=== PATIENT | female | born 1990 | race Caucasian/White ===

== ENCOUNTER 2018-10-27 14:27 | Emergency (ER) | payer BC, SELFPAY ==
[2018-10-27 14:34] VITALS: BP 127/92; PULSE 79; RESP 18; TEMP 36.8; O2SAT 100; BMI 29.9
--- NOTE | 2018-10-27 15:00 | DI.US.S_ITS ---
PROCEDURE: US PELVIC COMPLETE INDICATIONS: LEFT LOWER QUADRANT PAIN TECHNIQUE: Real-time scanning was performed of the pelvic organs, with image documentation. Additional endovaginal scanning was necessary due to incomplete visualization of the adnexal and endometrial structures by transabdominal scanning. COMPARISON: None. FINDINGS: Transabdominal scanning: Limited scanning through the kidneys shows no hydronephrosis. No pathologic free abdominal or pelvic fluid. Endovaginal scanning: Uterus: Uterus is normal in size at 6.7 x 3.1 x 4 cm. The endometrium measures 4 mm in combined thickness. An IUD is seen at its expected location. Ovaries: The right ovary measures 2.3 x 1.5 x 2.2 cm. The left ovary measures 2.2 x 1.1 x 2.4 cm. The ovaries have a normal sonographic appearance. No adnexal masses are seen. IMPRESSION: No imaging explanation is found for this patient's presenting history of left lower quadrant pain. Normal-appearing left ovary, without adnexal masses seen. The IUD is seen in place. Dictated by: Filiberto Bautista M.D. on 10/27/2018 at 14:36 Approved by: Filiberto Bautista M.D. on 10/27/2018 at 14:38
[2018-10-27] MEDS: SODIUM CHLORIDE 0.9% 1,000 ML 1000 ML IV (15:08)
--- NOTE | 2018-10-27 15:18 | ED.ABDPAIN ---
HPI - Abdominal Pain <ESDRAS Knapp - Last Filed: 10/27/18 19:17> General Chief Complaint: Abdominal Pain Stated Complaint: states left ovary swollen and pain Time Seen by Provider: 10/27/18 14:50 Source: patient Mode of arrival: ambulatory Limitations: no limitations History of Present Illness HPI narrative: Patient is a 28-year-old female nonsmoker who presents with her boyfriend with a chief complaint of left lower quadrant pain. She has been told she has an enlarged left ovary via pelvic exam about 6 months ago. She complains of chills, no overt fevers and pain that radiates from her left lower quadrant over to her right lower quadrant. She denies any concern of sexually transmitted infection. She denies any vaginal discharge or vaginal bleeding. She denies any constipation states her last bowel movement was this morning. She denies any dysuria urgency or frequency. She denies any vomiting, but complains of occasional nausea. Related Data Allergies Allergy/AdvReac Type Severity Reaction Status Date / Time No Known Drug Allergies Allergy Verified 10/27/18 14:40 Review of Systems <ESDRAS Knapp - Last Filed: 10/27/18 19:17> Review of Systems GENERAL: Denies chills, fatigue, malaise, fever, sweats. HEENT: Denies sinus pain, ear pain, sore throat, difficulty swallowing, dizziness. RESPIRATORY: Denies dyspnea, cough, wheezing, hemoptysis, sputum. CARDIOVASCULAR: Denies chest pain, palpitations, orthopnea, edema, GASTROINTESTINAL: See HPI : See HPI MUSCULOSKELETAL: denies weakness, joint pain, or bony pain SKIN: Denies rash, skin lesions, or other NEUROLOGIC: Denies weakness, headache, numbness, change in speech, confusion, seizures, incoordination. PSYCHIATRIC: No concerning psychosocial issues. 12 point review of systems is negative except for those stated above PFSH <ESDRAS Knapp - Last Filed: 10/27/18 19:17> Social History Smoking Status: Never smoker Social History Smoking Status: Never smoker Exam <ESDRAS Knapp - Last Filed: 10/27/18 19:17> Narrative Exam Narrative: GENERAL: This is a well-nourished, well-developed patient, no acute distress HEAD: Atraumatic. Normocephalic. No temporal or scalp tenderness. EYES: Pupils equal round and reactive. Extraocular motions intact. No scleral icterus. No injection or drainage. ENT: Nose without bleeding, purulent drainage or septal hematoma. Throat without erythema, tonsillar hypertrophy or exudate. Uvula midline. Airway patent. NECK: Trachea midline. No JVD or lymphadenopathy. Supple, nontender, no meningeal signs. CARDIOVASCULAR: Regular rate and rhythm without murmurs, gallops, or rubs. RESPIRATORY: Clear to auscultation. Breath sounds equal bilaterally. No wheezes, rales, or rhonchi. No cough. No increased respiratory effort. GASTROINTESTINAL: Abdomen soft, active bowel sounds all 4 quadrants, nondistended. No hepato-splenomegaly, or palpable masses. Pain to palpation of left lower quadrant. EXTREMITIES: No clubbing, cyanosis, or edema. No joint tenderness, effusion, or edema noted. BACK: Nontender without deformity or crepitance. No flank tenderness. NEURO: AOx3. SKIN: No rash or erythema. Initial Vital Signs Initial Vital Signs: Vital Signs Temperature 98.3 F 10/27/18 14:34 Pulse Rate 79 10/27/18 14:34 Respiratory Rate 18 10/27/18 14:34 Blood Pressure 127/92 H 10/27/18 14:34 Pulse Oximetry 100 10/27/18 14:34 <Mariama Robins DO - Last Filed: 10/29/18 10:15> Initial Vital Signs Initial Vital Signs: Vital Signs Temperature 98.3 F 10/27/18 14:34 Pulse Rate 79 10/27/18 14:34 Respiratory Rate 18 10/27/18 14:34 Blood Pressure 127/92 H 10/27/18 14:34 Pulse Oximetry 100 10/27/18 14:34 Course <YOSELIN Knapp-BC - Last Filed: 10/27/18 19:17> Course Narrative: I checked on the patient several times throughout her stay in the emergency department. Orders Ordered: Discontinued Medications Sodium Chloride (Normal Saline 0.9%) 1,000 mls @ 1,000 mls/hr IV BOLUS ONE Stop: 10/27/18 16:00 Last Infusion: 10/27/18 16:27 Dose: 0 mls/hr Admin: 10/27/18 15:08 Dose: 1,000 mls/hr Ketorolac Tromethamine (Toradol) 30 mg IV NOW ONE Stop: 10/27/18 16:34 Last Admin: 10/27/18 16:49 Dose: 30 mg Vital Signs - 8 hr 10/27/18 14:34 10/27/18 16:42 Temperature 98.3 F 98.8 F Pulse Rate 79 65 Respiratory Rate 18 17 Blood Pressure 127/92 H Blood Pressure [Right Arm] 114/80 Pulse Oximetry 100 99 <Mariama Robins DO - Last Filed: 10/29/18 10:15> Orders Ordered: Discontinued Medications Sodium Chloride (Normal Saline 0.9%) 1,000 mls @ 1,000 mls/hr IV BOLUS ONE Stop: 10/27/18 16:00 Last Infusion: 10/27/18 16:27 Dose: 0 mls/hr Admin: 10/27/18 15:08 Dose: 1,000 mls/hr Ketorolac Tromethamine (Toradol) 30 mg IV NOW ONE Stop: 10/27/18 16:34 Last Admin: 10/27/18 16:49 Dose: 30 mg Vital Signs - 8 hr 10/27/18 14:34 10/27/18 16:42 Temperature 98.3 F 98.8 F Pulse Rate 79 65 Respiratory Rate 18 17 Blood Pressure 127/92 H Blood Pressure [Right Arm] 114/80 Pulse Oximetry 100 99 MDM - Abdominal Pain <ESDRAS Knapp - Last Filed: 10/27/18 19:17> Lab Data Result diagrams: 10/27/18 14:55 10/27/18 14:55 Lab Results 10/27/18 10/27/18 Range/Units 14:55 14:55 WBC 6.7 (4.5-11.0) X10^3/uL RBC 4.28 (4.0-5.2) X10^6/uL Hgb 13.5 (12.0-16.0) g/dL Hct 39.7 (36-46) % MCV 92.9 (80-100) fL MCH 31.5 (26-34) PG MCHC 33.9 (30-36) % RDW 13.7 (11.6-14.8) % Plt Count 251 (150-400) X10^3/uL Neut % (Auto) 55.8 (50-75) % Lymph % (Auto) 34.1 (25-40) % Pershing % (Auto) 6.0 (3-14) % Eos % (Auto) 3.5 (2-4) % Baso % (Auto) 0.6 (0-2) % Neut # (Auto) 3700 (5771-8518) /uL Lymph # (Auto) 2300 (1899-6601) /uL Pershing # (Auto) 400 (0-900) /uL Eos # (Auto) 200 (0-450) /uL Baso # (Auto) 0 (0-100) /uL Sodium 140 (137-145) mmol/L Potassium 3.6 (3.4-5.1) mmol/L Chloride 105 (98-107) mmol/L Carbon Dioxide 24 (22-32) mmol/L BUN 15 (7-17) mg/dL Creatinine 0.60 (0.52-1.04) mg/dL Estimated GFR > 60.0 (>60) mL/min BUN/Creatinine Ratio 25.0 H (6-22) Glucose 89 (70-100) mg/dL Calcium 9.0 (8.4-10.2) mg/dL Total Bilirubin 0.4 (0.2-1.3) mg/dL AST 16 (14-36) IU/L ALT 19 (9-52) IU/L Alkaline Phosphatase 56 (38-126) U/L Total Protein 8.0 (6.3-8.2) g/dL Albumin 4.5 (3.5-5.0) g/dL Globulin 3.5 (1.7-4.1) g/dL Albumin/Globulin Ratio 1.3 (1.0-2.8) Amylase 72 (30-110) U/L Lipase 95 (23-300) U/L Point of care testing: Point of Care Testing Test Results Negative Urine Dip Bedside Urine Glucose Negative Bedside Urine Bilirubin - Negative Bedside Urine Ketone - Negative Urine Specific [place] 1.015 Bedside Urine Occult Blood - Negative Bedside Urine pH 6.5 Bedside Urine Protein - Negative Bedside Urine Urobilinogen - Negative Bedside Urine Nitrite - Negative Bedside Urine Leukocytes - Negative Esterase Imaging Data CT scan - abdomen: Radiologist's impression: Chart [facility] Diagn[facility] DATE TYPE STATUS AUTHOR Hx 10/27/18 15:38 Gus Marr 10/27/18 15:00 Filiberto Bautista Alia C 28, F108/09/1989 REG ER, ED.LOC - Main ED: R07 165.1cm 81.647kg BMI: 30.0kg/m? Abdominal Pain Search Chart No Data to Display ONSET Today 14:34 Kalina Voss 28 F 1990 [place] [address] CT Scan Report Signed Patient: Kalina Voss CMR#: [id number] : 1990Acct:[id number] Age/Sex: 28 / FDate of Service: 10/27/18 Loc: ED Accession Number: [id number] Procedure: CT abdomen pelvis w con Ordering Provider: Oliva Guillermo- PROCEDURE: CT ABDOMEN PELVIS W CON INDICATIONS: LLQ pain TECHNIQUE: After the administration of intravenous contrast, 5 mm thick sections acquired from the diaphragm to the symphysis. 5 mm coronal and sagittal reformats were acquired. For radiation dose reduction, the following was used: automated exposure control, adjustment of mA and/or kV according to patient size. COMPARISON: None. FINDINGS: Inferior Mediastinum: Visualized portions of the inferior mediastinum and inferior heart are unremarkable. Lungs: Visualized lung bases demonstrate mild bibasilar dependent atelectasis. ABDOMEN FINDINGS: Liver: Liver is unremarkable in appearance without focal intrahepatic abnormalities. No intrahepatic or extrahepatic biliary ductal dilatation. Gallbladder: Gallbladder is unremarkable without CT evidence for acute inflammation. Stomach: Visualized stomach appears unremarkable. Spleen: The spleen is normal in size and appearance. Adrenal glands: The adrenal glands are unremarkable in CT appearance. No suspicious nodules. Pancreas: Symmetric enhancement without focal lesions or pancreatic ductal dilatation. Kidneys: Kidneys are symmetric in size and enhancement, and there is no obstructive uropathy. Ureters are normal in course and caliber. Vessels: The visualized vascular structures are intact and well opacified. No evidence for aneurysmal dilatation of the abdominal aorta. Bowel and Mesentery: There is no evidence for bowel obstruction or acute inflammatory process. A few scattered colonic diverticula without acute diverticulitis. The visualized appendix appears normal. Peritoneal cavity: No suspicious lymphadenopathy within the mesenteric or pelvic regions as per CT size criteria. No free intraabdominal gas or fluid. Other soft tissues: No inguinal hernia. No ventral hernia. PELVIC FINDINGS: The visualized urinary bladder appears intact. No pathologically enlarged pelvic lymph nodes. No pathologic pelvic free fluid. Reproductive organs: Unremarkable as visualized. An intrauterine device is identified within the endometrial cavity. Osseous Structures: Visualized osseous structures are intact without acute fracture or focal destructive lesion. IMPRESSION: 1. CT abdomen and pelvis without acute abnormalities. 2. A few scattered colonic diverticula without CT findings for acute diverticulitis. 3. Normal appendix Dictated by: Gus Marr M.D. on 10/27/2018 at 16:02 Approved by: Gus Marr M.D. on 10/27/2018 at 16:15 [facility] Narrative Medical decision making narrative: The patient is a 28-year-old female who presents with lower quadrant pain. She has a [place] normal pelvic ultrasound, normal UA as well as a normal CT scan. She does have a history of enlarged left ovary, which is why I obtained a pelvic ultrasound. She had a normal pelvic ultrasound, so I obtained a CT scan to rule out any etiology such as diverticulitis. She is nontoxic-appearing in the emergency department normotensive and afebrile. Given that she had a normal CBC, CMP and lipase and lipase, I would like her to follow up with her primary care provider in the next few days. She verbalized understanding of this. We discussed return precautions of inability keep down fluids, fever and acute concerns. Patient no questions or concerns upon discharge. She was given Toradol and IV fluid in the emergency department. <Mariama Robins, DO - Last Filed: 10/29/18 10:15> Lab Data Lab Results 10/27/18 10/27/18 Range/Units 14:55 14:55 WBC 6.7 (4.5-11.0) X10^3/uL RBC 4.28 (4.0-5.2) X10^6/uL Hgb 13.5 (12.0-16.0) g/dL Hct 39.7 (36-46) % MCV 92.9 (80-100) fL MCH 31.5 (26-34) PG MCHC 33.9 (30-36) % RDW 13.7 (11.6-14.8) % Plt Count 251 (150-400) X10^3/uL Neut % (Auto) 55.8 (50-75) % Lymph % (Auto) 34.1 (25-40) % Pershing % (Auto) 6.0 (3-14) % Eos % (Auto) 3.5 (2-4) % Baso % (Auto) 0.6 (0-2) % Neut # (Auto) 3700 (8718-1388) /uL Lymph # (Auto) 2300 (7309-0392) /uL Pershing # (Auto) 400 (0-900) /uL Eos # (Auto) 200 (0-450) /uL Baso # (Auto) 0 (0-100) /uL Sodium 140 (137-145) mmol/L Potassium 3.6 (3.4-5.1) mmol/L Chloride 105 (98-107) mmol/L Carbon Dioxide 24 (22-32) mmol/L BUN 15 (7-17) mg/dL Creatinine 0.60 (0.52-1.04) mg/dL Estimated GFR > 60.0 (>60) mL/min BUN/Creatinine Ratio 25.0 H (6-22) Glucose 89 (70-100) mg/dL Calcium 9.0 (8.4-10.2) mg/dL Total Bilirubin 0.4 (0.2-1.3) mg/dL AST 16 (14-36) IU/L ALT 19 (9-52) IU/L Alkaline Phosphatase 56 (38-126) U/L Total Protein 8.0 (6.3-8.2) g/dL Albumin 4.5 (3.5-5.0) g/dL Globulin 3.5 (1.7-4.1) g/dL Albumin/Globulin Ratio 1.3 (1.0-2.8) Amylase 72 (30-110) U/L Lipase 95 (23-300) U/L Point of care testing: Point of Care Testing Test Results Negative Urine Dip Bedside Urine Glucose Negative Bedside Urine Bilirubin - Negative Bedside Urine Ketone - Negative Urine Specific [place] 1.015 Bedside Urine Occult Blood - Negative Bedside Urine pH 6.5 Bedside Urine Protein - Negative Bedside Urine Urobilinogen - Negative Bedside Urine Nitrite - Negative Bedside Urine Leukocytes - Negative Esterase Discharge Plan Departure Patient Disposition: Home Clinical Impression: Abdominal pain Qualifiers: Abdominal location: left lower quadrant Qualified Code(s): R10.32 - Left lower quadrant pain Discharge Date/Time: 10/27/18 16:57 Interventions: ED Discharge Assessment Last Done: 10/27/18 16:55 Instructions: DI for Abdominal Pain-Adult Activity Restrictions/Additional Instructions: Your ultrasound and abdominal CT came back normal. Your urine has no signs of infection. Your lab work came back normal. Please follow up with primary care provider in the next few days. Come back to emergency department if you develop any fevers, inability keep down food or fluids, or have any acute concerns. He can try taking Tylenol for the pain. You can start taking ibuprofen 6-8 hours after the Toradol injection. Stand Alone Forms: Work Release Note <Mariama Robins DO - Last Filed: 10/29/18 10:15> Cosign ED Attending Abbie Attestation: I was immediately available in the department for consultation. Documentation has been reviewed. I agree with assessment and plan.
--- NOTE | 2018-10-27 15:21 | ED_ITS ---
HPI - Abdominal Pain <ESDRAS Knapp - Last Filed: 10/27/18 19:17> General Chief Complaint: Abdominal Pain Stated Complaint: states left ovary swollen and pain Time Seen by Provider: 10/27/18 14:50 Source: patient Mode of arrival: ambulatory Limitations: no limitations History of Present Illness HPI narrative: Patient is a 28-year-old female nonsmoker who presents with her boyfriend with a chief complaint of left lower quadrant pain. She has been told she has an enlarged left ovary via pelvic exam about 6 months ago. She complains of chills, no overt fevers and pain that radiates from her left lower quadrant over to her right lower quadrant. She denies any concern of sexually transmitted infection. She denies any vaginal discharge or vaginal bleeding. She denies any constipation states her last bowel movement was this morning. She denies any dysuria urgency or frequency. She denies any vomiting, but complains of occasional nausea. Related Data Allergies Allergy/AdvReac Type Severity Reaction Status Date / Time No Known Drug Allergies Allergy Verified 10/27/18 14:40 Review of Systems <ESDRAS Knapp - Last Filed: 10/27/18 19:17> Review of Systems GENERAL: Denies chills, fatigue, malaise, fever, sweats. HEENT: Denies sinus pain, ear pain, sore throat, difficulty swallowing, dizziness. RESPIRATORY: Denies dyspnea, cough, wheezing, hemoptysis, sputum. CARDIOVASCULAR: Denies chest pain, palpitations, orthopnea, edema, GASTROINTESTINAL: See HPI : See HPI MUSCULOSKELETAL: denies weakness, joint pain, or bony pain SKIN: Denies rash, skin lesions, or other NEUROLOGIC: Denies weakness, headache, numbness, change in speech, confusion, seizures, incoordination. PSYCHIATRIC: No concerning psychosocial issues. 12 point review of systems is negative except for those stated above PFSH <ESDRAS Knapp - Last Filed: 10/27/18 19:17> Social History Smoking Status: Never smoker Social History Smoking Status: Never smoker Exam <ESDRAS Knapp - Last Filed: 10/27/18 19:17> Narrative Exam Narrative: GENERAL: This is a well-nourished, well-developed patient, no acute distress HEAD: Atraumatic. Normocephalic. No temporal or scalp tenderness. EYES: Pupils equal round and reactive. Extraocular motions intact. No scleral icterus. No injection or drainage. ENT: Nose without bleeding, purulent drainage or septal hematoma. Throat without erythema, tonsillar hypertrophy or exudate. Uvula midline. Airway patent. NECK: Trachea midline. No JVD or lymphadenopathy. Supple, nontender, no meningeal signs. CARDIOVASCULAR: Regular rate and rhythm without murmurs, gallops, or rubs. RESPIRATORY: Clear to auscultation. Breath sounds equal bilaterally. No wheezes, rales, or rhonchi. No cough. No increased respiratory effort. GASTROINTESTINAL: Abdomen soft, active bowel sounds all 4 quadrants, nondistended. No hepato-splenomegaly, or palpable masses. Pain to palpation of left lower quadrant. EXTREMITIES: No clubbing, cyanosis, or edema. No joint tenderness, effusion, or edema noted. BACK: Nontender without deformity or crepitance. No flank tenderness. NEURO: AOx3. SKIN: No rash or erythema. Initial Vital Signs Initial Vital Signs: Vital Signs Temperature 98.3 F 10/27/18 14:34 Pulse Rate 79 10/27/18 14:34 Respiratory Rate 18 10/27/18 14:34 Blood Pressure 127/92 H 10/27/18 14:34 Pulse Oximetry 100 10/27/18 14:34 <Mariama Robins DO - Last Filed: 10/29/18 10:15> Initial Vital Signs Initial Vital Signs: Vital Signs Temperature 98.3 F 10/27/18 14:34 Pulse Rate 79 10/27/18 14:34 Respiratory Rate 18 10/27/18 14:34 Blood Pressure 127/92 H 10/27/18 14:34 Pulse Oximetry 100 10/27/18 14:34 Course <YOSEILN Knapp-BC - Last Filed: 10/27/18 19:17> Course Narrative: I checked on the patient several times throughout her stay in the emergency department. Orders Ordered: Discontinued Medications Sodium Chloride (Normal Saline 0.9%) 1,000 mls @ 1,000 mls/hr IV BOLUS ONE Stop: 10/27/18 16:00 Last Infusion: 10/27/18 16:27 Dose: 0 mls/hr Admin: 10/27/18 15:08 Dose: 1,000 mls/hr Ketorolac Tromethamine (Toradol) 30 mg IV NOW ONE Stop: 10/27/18 16:34 Last Admin: 10/27/18 16:49 Dose: 30 mg Vital Signs - 8 hr 10/27/18 14:34 10/27/18 16:42 Temperature 98.3 F 98.8 F Pulse Rate 79 65 Respiratory Rate 18 17 Blood Pressure 127/92 H Blood Pressure [Right Arm] 114/80 Pulse Oximetry 100 99 <Mariama Robins DO - Last Filed: 10/29/18 10:15> Orders Ordered: Discontinued Medications Sodium Chloride (Normal Saline 0.9%) 1,000 mls @ 1,000 mls/hr IV BOLUS ONE Stop: 10/27/18 16:00 Last Infusion: 10/27/18 16:27 Dose: 0 mls/hr Admin: 10/27/18 15:08 Dose: 1,000 mls/hr Ketorolac Tromethamine (Toradol) 30 mg IV NOW ONE Stop: 10/27/18 16:34 Last Admin: 10/27/18 16:49 Dose: 30 mg Vital Signs - 8 hr 10/27/18 14:34 10/27/18 16:42 Temperature 98.3 F 98.8 F Pulse Rate 79 65 Respiratory Rate 18 17 Blood Pressure 127/92 H Blood Pressure [Right Arm] 114/80 Pulse Oximetry 100 99 MDM - Abdominal Pain <ESDRAS Knapp - Last Filed: 10/27/18 19:17> Lab Data Result diagrams: 10/27/18 14:55 10/27/18 14:55 Lab Results 10/27/18 10/27/18 Range/Units 14:55 14:55 WBC 6.7 (4.5-11.0) X10^3/uL RBC 4.28 (4.0-5.2) X10^6/uL Hgb 13.5 (12.0-16.0) g/dL Hct 39.7 (36-46) % MCV 92.9 (80-100) fL MCH 31.5 (26-34) PG MCHC 33.9 (30-36) % RDW 13.7 (11.6-14.8) % Plt Count 251 (150-400) X10^3/uL Neut % (Auto) 55.8 (50-75) % Lymph % (Auto) 34.1 (25-40) % [place] % (Auto) 6.0 (3-14) % Eos % (Auto) 3.5 (2-4) % Baso % (Auto) 0.6 (0-2) % Neut # (Auto) 3700 (9936-4387) /uL Lymph # (Auto) 2300 (9904-0960) /uL [place] # (Auto) 400 (0-900) /uL Eos # (Auto) 200 (0-450) /uL Baso # (Auto) 0 (0-100) /uL Sodium 140 (137-145) mmol/L Potassium 3.6 (3.4-5.1) mmol/L Chloride 105 (98-107) mmol/L Carbon Dioxide 24 (22-32) mmol/L BUN 15 (7-17) mg/dL Creatinine 0.60 (0.52-1.04) mg/dL Estimated GFR > 60.0 (>60) mL/min BUN/Creatinine Ratio 25.0 H (6-22) Glucose 89 (70-100) mg/dL Calcium 9.0 (8.4-10.2) mg/dL Total Bilirubin 0.4 (0.2-1.3) mg/dL AST 16 (14-36) IU/L ALT 19 (9-52) IU/L Alkaline Phosphatase 56 (38-126) U/L Total Protein 8.0 (6.3-8.2) g/dL Albumin 4.5 (3.5-5.0) g/dL Globulin 3.5 (1.7-4.1) g/dL Albumin/Globulin Ratio 1.3 (1.0-2.8) Amylase 72 (30-110) U/L Lipase 95 (23-300) U/L Point of care testing: Point of Care Testing Test Results Negative Urine Dip Bedside Urine Glucose Negative Bedside Urine Bilirubin - Negative Bedside Urine Ketone - Negative Urine Specific [place] 1.015 Bedside Urine Occult Blood - Negative Bedside Urine pH 6.5 Bedside Urine Protein - Negative Bedside Urine Urobilinogen - Negative Bedside Urine Nitrite - Negative Bedside Urine Leukocytes - Negative Esterase Imaging Data CT scan - abdomen: Radiologist's impression: [facility] Diagn[facility] DATE TYPE STATUS AUTHOR Hx 10/27/18 15:38 Gus Marr 10/27/18 15:00 Filiberto Bautista Alia C 28, F108/09/1989 REG ER, ED.LOC - Main ED: R07 165.1cm 81.647kg BMI: 30.0kg/m? Abdominal Pain Search Chart No Data to Display ONSET Today 14:34 Kalina Voss 28 F 1990 [place] [address] CT Scan Report Signed Patient: Kalina Voss CMR#: [id number] : 1990Acct:[id number] Age/Sex: 28 / FDate of Service: 10/27/18 Loc: ED Accession Number: [id number] Procedure: CT abdomen pelvis w con Ordering Provider: Oliva Guillermo- PROCEDURE: CT ABDOMEN PELVIS W CON INDICATIONS: LLQ pain TECHNIQUE: After the administration of intravenous contrast, 5 mm thick sections acquired from the diaphragm to the symphysis. 5 mm coronal and sagittal reformats were acquired. For radiation dose reduction, the following was used: automated exposure control, adjustment of mA and/or kV according to patient size. COMPARISON: None. FINDINGS: Inferior Mediastinum: Visualized portions of the inferior mediastinum and inferior heart are unremarkable. Lungs: Visualized lung bases demonstrate mild bibasilar dependent atelectasis. ABDOMEN FINDINGS: Liver: Liver is unremarkable in appearance without focal intrahepatic abnormalities. No intrahepatic or extrahepatic biliary ductal dilatation. Gallbladder: Gallbladder is unremarkable without CT evidence for acute inflammation. Stomach: Visualized stomach appears unremarkable. Spleen: The spleen is normal in size and appearance. Adrenal glands: The adrenal glands are unremarkable in CT appearance. No suspicious nodules. Pancreas: Symmetric enhancement without focal lesions or pancreatic ductal dilatation. Kidneys: Kidneys are symmetric in size and enhancement, and there is no obstructive uropathy. Ureters are normal in course and caliber. Vessels: The visualized vascular structures are intact and well opacified. No evidence for aneurysmal dilatation of the abdominal aorta. Bowel and Mesentery: There is no evidence for bowel obstruction or acute inflammatory process. A few scattered colonic diverticula without acute diverticulitis. The visualized appendix appears normal. Peritoneal cavity: No suspicious lymphadenopathy within the mesenteric or pelvic regions as per CT size criteria. No free intraabdominal gas or fluid. Other soft tissues: No inguinal hernia. No ventral hernia. PELVIC FINDINGS: The visualized urinary bladder appears intact. No pathologically enlarged pelvic lymph nodes. No pathologic pelvic free fluid. Reproductive organs: Unremarkable as visualized. An intrauterine device is identified within the endometrial cavity. Osseous Structures: Visualized osseous structures are intact without acute fracture or focal destructive lesion. IMPRESSION: 1. CT abdomen and pelvis without acute abnormalities. 2. A few scattered colonic diverticula without CT findings for acute diverticulitis. 3. Normal appendix Dictated by: Gus Marr M.D. on 10/27/2018 at 16:02 Approved by: Gus Marr M.D. on 10/27/2018 at 16:15 [facility] Narrative Medical decision making narrative: The patient is a 28-year-old female who presents with lower quadrant pain. She has a [place] normal pelvic ultrasound, normal UA as well as a normal CT scan. She does have a history of enlarged left ovary, which is why I obtained a pelvic ultrasound. She had a normal pelvic ultrasound, so I obtained a CT scan to rule out any etiology such as diverticulitis. She is nontoxic-appearing in the emergency department normotensive and afebrile. Given that she had a normal CBC, CMP and lipase and lipase, I would like her to follow up with her primary care provider in the next few days. She verbalized understanding of this. We discussed return precautions of inability keep down fluids, fever and acute concerns. Patient no questions or concerns upon discharge. She was given Toradol and IV fluid in the emergency department. <Mariama Robins, DO - Last Filed: 10/29/18 10:15> Lab Data Lab Results 10/27/18 10/27/18 Range/Units 14:55 14:55 WBC 6.7 (4.5-11.0) X10^3/uL RBC 4.28 (4.0-5.2) X10^6/uL Hgb 13.5 (12.0-16.0) g/dL Hct 39.7 (36-46) % MCV 92.9 (80-100) fL MCH 31.5 (26-34) PG MCHC 33.9 (30-36) % RDW 13.7 (11.6-14.8) % Plt Count 251 (150-400) X10^3/uL Neut % (Auto) 55.8 (50-75) % Lymph % (Auto) 34.1 (25-40) % Johnson % (Auto) 6.0 (3-14) % Eos % (Auto) 3.5 (2-4) % Baso % (Auto) 0.6 (0-2) % Neut # (Auto) 3700 (7485-2646) /uL Lymph # (Auto) 2300 (0560-2998) /uL [place] # (Auto) 400 (0-900) /uL Eos # (Auto) 200 (0-450) /uL Baso # (Auto) 0 (0-100) /uL Sodium 140 (137-145) mmol/L Potassium 3.6 (3.4-5.1) mmol/L Chloride 105 (98-107) mmol/L Carbon Dioxide 24 (22-32) mmol/L BUN 15 (7-17) mg/dL Creatinine 0.60 (0.52-1.04) mg/dL Estimated GFR > 60.0 (>60) mL/min BUN/Creatinine Ratio 25.0 H (6-22) Glucose 89 (70-100) mg/dL Calcium 9.0 (8.4-10.2) mg/dL Total Bilirubin 0.4 (0.2-1.3) mg/dL AST 16 (14-36) IU/L ALT 19 (9-52) IU/L Alkaline Phosphatase 56 (38-126) U/L Total Protein 8.0 (6.3-8.2) g/dL Albumin 4.5 (3.5-5.0) g/dL Globulin 3.5 (1.7-4.1) g/dL Albumin/Globulin Ratio 1.3 (1.0-2.8) Amylase 72 (30-110) U/L Lipase 95 (23-300) U/L Point of care testing: Point of Care Testing Test Results Negative Urine Dip Bedside Urine Glucose Negative Bedside Urine Bilirubin - Negative Bedside Urine Ketone - Negative Urine Specific [place] 1.015 Bedside Urine Occult Blood - Negative Bedside Urine pH 6.5 Bedside Urine Protein - Negative Bedside Urine Urobilinogen - Negative Bedside Urine Nitrite - Negative Bedside Urine Leukocytes - Negative Esterase Discharge Plan Departure Patient Disposition: Home Clinical Impression: Abdominal pain Qualifiers: Abdominal location: left lower quadrant Qualified Code(s): R10.32 - Left lower quadrant pain Discharge Date/Time: 10/27/18 16:57 Interventions: ED Discharge Assessment Last Done: 10/27/18 16:55 Instructions: DI for Abdominal Pain-Adult Activity Restrictions/Additional Instructions: Your ultrasound and abdominal CT came back normal. Your urine has no signs of infection. Your lab work came back normal. Please follow up with primary care provider in the next few days. Come back to emergency department if you develop any fevers, inability keep down food or fluids, or have any acute concerns. He can try taking Tylenol for the pain. You can start taking ibuprofen 6-8 hours after the Toradol injection. Stand Alone Forms: Work Release Note <Mariama Robins DO - Last Filed: 10/29/18 10:15> Cosign ED Attending Abbie Attestation: I was immediately available in the department for consultation. Documentation has been reviewed. I agree with assessment and plan.
[2018-10-27 15:27] LABS: Add Manual Diff / Slide Review NO; Basophils Absolute Auto 0 /uL (0-100); Basophils Percent Auto 0.6 % (0-2); Eosinophils Absolute Auto 200 /uL (0-450); Eosinophils Percent Auto 3.5 % (2-4); Hematocrit 39.7 % (36-46); Hemoglobin 13.5 g/dL (12.0-16.0); Lymphocytes Absolute Auto 2300 /uL (1100-4500); Lymphocytes Percent Auto 34.1 % (25-40); Mean Corpuscular HGB Conc 33.9 % (30-36); Mean Corpuscular Hemoglobin 31.5 PG (26-34); Mean Corpuscular Volume 92.9 fL (80-100); Monocytes Absolute Auto 400 /uL (0-900); Neutrophils Absolute Auto 3700 /uL (1500-7000); Neutrophils Percent Auto 55.8 % (50-75); Platelet Count 251 X10^3/uL (150-400); Red Blood Cell Count 4.28 X10^6/uL (4.0-5.2); Red Cell Distribution Width 13.7 % (11.6-14.8); White Blood Cell Count 6.7 X10^3/uL (4.5-11.0)
[2018-10-27 15:28] LABS: Alanine Aminotransferase 19 IU/L (9-52); Albumin 4.5 g/dL (3.5-5.0); Albumin Globulin Ratio 1.3 (1.0-2.8); Alkaline Phosphatase 56 U/L (38-126); Amylase 72 U/L (30-110); Aspartate Aminotransferase 16 IU/L (14-36); Bilirubin Total 0.4 mg/dL (0.2-1.3); Blood Urea Nitrogen 15 mg/dL (7-17); Carbon Dioxide 24 mmol/L (22-32); Chloride 105 mmol/L (98-107); Estimated Glomerular Filt Rate > 60.0 mL/min (>60); Globulin 3.5 g/dL (1.7-4.1); Glucose 89 mg/dL (70-100); HEMOLYSIS < 15 (0-50); Lipase 95 U/L (23-300); Potassium 3.6 mmol/L (3.4-5.1); Sodium 140 mmol/L (137-145)
--- NOTE | 2018-10-27 15:38 | DI.CT.S_ITS ---
PROCEDURE: CT ABDOMEN PELVIS W CON INDICATIONS: LLQ pain TECHNIQUE: After the administration of intravenous contrast, 5 mm thick sections acquired from the diaphragm to the symphysis. 5 mm coronal and sagittal reformats were acquired. For radiation dose reduction, the following was used: automated exposure control, adjustment of mA and/or kV according to patient size. COMPARISON: None. FINDINGS: Inferior Mediastinum: Visualized portions of the inferior mediastinum and inferior heart are unremarkable. Lungs: Visualized lung bases demonstrate mild bibasilar dependent atelectasis. ABDOMEN FINDINGS: Liver: Liver is unremarkable in appearance without focal intrahepatic abnormalities. No intrahepatic or extrahepatic biliary ductal dilatation. Gallbladder: Gallbladder is unremarkable without CT evidence for acute inflammation. Stomach: Visualized stomach appears unremarkable. Spleen: The spleen is normal in size and appearance. Adrenal glands: The adrenal glands are unremarkable in CT appearance. No suspicious nodules. Pancreas: Symmetric enhancement without focal lesions or pancreatic ductal dilatation. Kidneys: Kidneys are symmetric in size and enhancement, and there is no obstructive uropathy. Ureters are normal in course and caliber. Vessels: The visualized vascular structures are intact and well opacified. No evidence for aneurysmal dilatation of the abdominal aorta. Bowel and Mesentery: There is no evidence for bowel obstruction or acute inflammatory process. A few scattered colonic diverticula without acute diverticulitis. The visualized appendix appears normal. Peritoneal cavity: No suspicious lymphadenopathy within the mesenteric or pelvic regions as per CT size criteria. No free intraabdominal gas or fluid. Other soft tissues: No inguinal hernia. No ventral hernia. PELVIC FINDINGS: The visualized urinary bladder appears intact. No pathologically enlarged pelvic lymph nodes. No pathologic pelvic free fluid. Reproductive organs: Unremarkable as visualized. An intrauterine device is identified within the endometrial cavity. Osseous Structures: Visualized osseous structures are intact without acute fracture or focal destructive lesion. IMPRESSION: 1. CT abdomen and pelvis without acute abnormalities. 2. A few scattered colonic diverticula without CT findings for acute diverticulitis. 3. Normal appendix Dictated by: Gus Marr M.D. on 10/27/2018 at 16:02 Approved by: Gus Marr M.D. on 10/27/2018 at 16:15
[2018-10-27 16:42] VITALS: BP 114/80; PULSE 65; RESP 17; TEMP 37.1; O2SAT 99
[2018-10-27] MEDS: KETOROLAC 60 MG/2 ML VIAL 30 MG IV (16:49)
== END 2018-10-27 16:57 | disposition home or self-care (01) ==
PROVIDERS: Emergency Provider Nurse Practitioner Family
DX: R10.32 Left lower quadrant pain (principal)
CPT/HCPCS: 36591; 74177; 76830; 76856; 80053; 81003; 81025; 82150; 83690; 85025; 96361; 96374; 99283; 99284; J1885; Q9967

== ENCOUNTER → 2021-08-08 14:52 | Outpatient (CLI) | payer OTHER, SELFPAY | PROVIDERS: PCP Physician Assistant; Visit Provider Physician Assistant | DX: R30.0 Dysuria (principal) | CPT/HCPCS: 87077; 87086; 87186 ==

== ENCOUNTER 2022-10-08 22:15 | Emergency (ER) | payer OTHER, SELFPAY ==
[2022-10-08 22:40] VITALS: BP 121/75; PULSE 67; RESP 18; TEMP 36.6; O2SAT 97; BMI 34.1
[2022-10-08 23:31] LABS: Add Manual Diff / Slide Review NO; Basophils Absolute Auto 100 /uL (0-100); Eosinophils Absolute Auto 300 /uL (0-450); Eosinophils Percent Auto 2.8 % (2-4); Hematocrit 37.8 % (36-46); Hemoglobin 12.8 g/dL (12.0-16.0); Lymphocytes Absolute Auto 2900 /uL (1100-4500); Lymphocytes Percent Auto 33.1 % (25-40); Mean Corpuscular HGB Conc 33.8 % (30-36); Mean Corpuscular Hemoglobin 31.6 PG (26-34); Mean Corpuscular Volume 93.4 fL (80-100); Monocytes Absolute Auto 500 /uL (0-900); Monocytes Percent Auto 6.1 % (3-14); Neutrophils Absolute Auto 5100 /uL (1500-7000); Platelet Count 257 X10^3/uL (150-400); Red Blood Cell Count 4.05 X10^6/uL (4.0-5.2); Red Cell Distribution Width 12.8 % (11.6-14.8); White Blood Cell Count 8.9 X10^3/uL (4.5-11.0)
[2022-10-08 23:45] LABS: BUN Creatinine Ratio 28.4 (6-22); Blood Urea Nitrogen 19 mg/dL (7-17); Calcium 8.6 mg/dL (8.4-10.2); Carbon Dioxide 25 mmol/L (22-32); Chloride 104 mmol/L (98-107); Estimated Glomerular Filt Rate > 60 mL/min (>60); Glucose 89 mg/dL (70-100); HEMOLYSIS < 15 (0-50); Potassium 3.5 mmol/L (3.4-5.1); Sodium 138 mmol/L (137-145)
[2022-10-09 01:38] LABS: Ictotest Urine Negative (Negative)
[2022-10-09 01:40] LABS: Squamous Epithelial Cell Urine 10-30 /HPF (0-5/HPF); WBC Urine 10-30/HPF (0-5/HPF)
[2022-10-09 01:41] LABS: Bacteria Urine Many (>30); RBC Urine 0-1/HPF (0-5/HPF)
[2022-10-09 01:42] LABS: Culture Indicated Urine Cult Not Indicated
[2022-10-09 01:49] VITALS: BP 129/88; PULSE 72; RESP 20; O2SAT 95
--- NOTE | 2022-10-09 01:50 | ED_ITS ---
HPI - General Adult General Chief complaint: Abdominal Pain Stated complaint: black stool, lower back pain, blood after urinatio Time Seen by Provider: 10/09/22 01:29 Source: patient Mode of arrival: Ambulatory Limitations: no limitations History of Present Illness HPI narrative: Patient is a 32-year-old female who about 24 hours ago had 1 episode of dark colored stool. She states that it was not particularly uncomfortable for her to go the bathroom. Was not diarrhea. Since that time she is had 1 further epi sode when she was urinating and noticed bright red blood in the stool. She is having some slight lower abdominal tenderness. Has not had a menstrual cycle since 2014 because she is an IUD in place. No prior abdominal surgeries. No fevers. No vomiting. Related Data Home Medications Medication Instructions Recorded Confirmed levonorgestrel 21 mcg/24 hours (8 intrauterine 11/15/21 11/15/21 yrs) 52 mg intrauterine device (Mirena) Allergies Allergy/AdvReac Type Severity Reaction Status Date / Time No Known Drug Allergies Allergy Verified 11/15/21 08:04 Review of Systems Constitutional Constitutional: Reports system reviewed and no additional complaints, except as documented Gastrointestinal Gastrointestinal: Reports system reviewed and no additional complaints, except as documented Genitourinary Genitourinary: Reports system reviewed and no additional complaints, except as documented Integumentary/Breasts Skin/Breast: Reports system reviewed and no additional complaints, except as documented Hematologic/Lymphatic On Anticoagulants: No Patient History Medical History Anxiety and depression Asthma (~2011) Lumbar pain Ovarian cyst (~2014) Family History Mother Thyroid cancer Grandmother Ovarian cancer Grandmother Lung cancer Smoker Social History Smoking Status: Never smoker Smoking Status: Never smoker alcohol intake frequency: a few times a week Substance Use Type: marijuana Exam Initial Vital Signs Initial Vital Signs: Vital Signs Temperature 97.9 F 10/08/22 22:40 Pulse Rate 67 10/08/22 22:40 Respiratory Rate 18 10/08/22 22:40 Blood Pressure 121/75 10/08/22 22:40 Pulse Oximetry 97 10/08/22 22:40 Oxygen Delivery Method Room Air 10/08/22 22:40 Const General: cooperative and comfortable HENMT Head: normal to inspection and normocephalic Resp Effort & Inspection: normal respiratory effort Cardio Rate: regular rate GI Inspection: normal to inspection and non-distended Rectal Exam: visual inspection normal, heme positive stool, No hemorrhoids, No laceration and No lesions Skin General: no rashes or lesions noted Course Orders Ordered: ED Orders 10/08/22 23:17 Basic Metabolic Panel Stat Complete Blood Count AUTO DIFF Stat 10/09/22 01:21 Ictotest Urine Stat Urine Microscopic Stat 10/09/22 01:32 Urine Culture Stat Vital Signs Vital signs: Vital Signs - 8 hr 10/08/22 22:40 10/09/22 01:49 Temperature 97.9 F Pulse Rate 67 72 Respiratory Rate 18 20 Blood Pressure 121/75 129/88 Pulse Oximetry 97 95 Oxygen Delivery Method Room Air Room Air Medical Decision Making Lab Data Lab results reviewed: Yes I reviewed the patient's lab results. 10/08/22 23:17 10/08/22 23:17 Labs: Lab Results 10/08/22 10/08/22 10/09/22 Range/Units 23:17 23:17 01:21 WBC 8.9 (4.5-11.0) X10^3/uL RBC 4.05 (4.0-5.2) X10^6/uL Hgb 12.8 (12.0-16.0) g/dL Hct 37.8 (36-46) % MCV 93.4 (80-100) fL MCH 31.6 (26-34) PG MCHC 33.8 (30-36) % RDW 12.8 (11.6-14.8) % Plt Count 257 (150-400) X10^3/uL Neut % (Auto) 57.0 (50-75) % Lymph % (Auto) 33.1 (25-40) % [place] % (Auto) 6.1 (3-14) % Eos % (Auto) 2.8 (2-4) % Baso % (Auto) 1.0 (0-2) % Neut # (Auto) 5100 (9835-2323) /uL Lymph # (Auto) 2900 (7633-3577) /uL [place] # (Auto) 500 (0-900) /uL Eos # (Auto) 300 (0-450) /uL Baso # (Auto) 100 (0-100) /uL Sodium 138 (137-145) mmol/L Potassium 3.5 (3.4-5.1) mmol/L Chloride 104 (98-107) mmol/L Carbon Dioxide 25 (22-32) mmol/L BUN 19 H (7-17) mg/dL Creatinine 0.67 (0.52-1.04) mg/dL Estimated GFR > 60 (>60) mL/min BUN/Creatinine Ratio 28.4 H (6-22) Glucose 89 (70-100) mg/dL Calcium 8.6 (8.4-10.2) mg/dL Ur Bilirubin Confirm Negative (Negative) Urine RBC (0-5/HPF) Urine WBC (0-5/HPF) Ur Squamous Epith Cells (0-5/HPF) Urine Bacteria (None) Ur Culture Indicated? 10/09/22 Range/Units 01:21 WBC (4.5-11.0) X10^3/uL RBC (4.0-5.2) X10^6/uL Hgb (12.0-16.0) g/dL Hct (36-46) % MCV (80-100) fL MCH (26-34) PG MCHC (30-36) % RDW (11.6-14.8) % Plt Count (150-400) X10^3/uL Neut % (Auto) (50-75) % Lymph % (Auto) (25-40) % [place] % (Auto) (3-14) % Eos % (Auto) (2-4) % Baso % (Auto) (0-2) % Neut # (Auto) (6204-4485) /uL Lymph # (Auto) (2194-3225) /uL [place] # (Auto) (0-900) /uL Eos # (Auto) (0-450) /uL Baso # (Auto) (0-100) /uL Sodium (137-145) mmol/L Potassium (3.4-5.1) mmol/L Chloride (98-107) mmol/L Carbon Dioxide (22-32) mmol/L BUN (7-17) mg/dL Creatinine (0.52-1.04) mg/dL Estimated GFR (>60) mL/min BUN/Creatinine Ratio (6-22) Glucose (70-100) mg/dL Calcium (8.4-10.2) mg/dL Ur Bilirubin Confirm (Negative) Urine RBC 0-1/hpf (0-5/HPF) Urine WBC 10-30/hpf H (0-5/HPF) Ur Squamous Epith Cells 10-30 /hpf H (0-5/HPF) Urine Bacteria Many (>30) H (None) Ur Culture Indicated? Cult not indicated Point of Care Testing Test Results Negative Urine Dip Bedside Urine Glucose Negative Bedside Urine Bilirubin ++ 2 Bedside Urine Ketone +/- 5 Urine Specific [place] 1.03 Bedside Urine Occult Blood - Negative Bedside Urine pH 6 Bedside Urine Protein + 30 Bedside Urine Urobilinogen - Negative Bedside Urine Nitrite - Negative Bedside Urine Leukocytes - Negative Esterase Point of care testing: Point of Care Testing Test Results Negative Urine Dip Bedside Urine Glucose Negative Bedside Urine Bilirubin ++ 2 Bedside Urine Ketone +/- 5 Urine Specific [place] 1.03 Bedside Urine Occult Blood - Negative Bedside Urine pH 6 Bedside Urine Protein + 30 Bedside Urine Urobilinogen - Negative Bedside Urine Nitrite - Negative Bedside Urine Leukocytes - Negative Esterase MDM Narrative Medical decision making narrative: Vital signs and labs are unremarkable. She does have heme-positive stool but no signs fissures nor hemorrhoids noted on the exam. This was performed with nursing at bedside. He is a benign abdominal exam. She is not anemic. Not tachycardic. No indication for blood transfusion. No indication for emergent surgical consultation. We did discuss the importance of follow-up as she may need a colonoscopy for further evaluation. She was given follow-up information for General surgery for this. She was given return precautions. She expressed understanding and agreement. Discharge Plan Departure Patient Disposition: Home Clinical Impression: Rectal bleeding Instructions: DI for Rectal Bleeding Activity Restrictions/Additional Instructions: I do recommend that you contact the general surgery department at the number provided below for a follow-up. Return to the emergency department for any new symptoms. Prescriptions: No Action Mirena 20 mcg/24 hours (7 yrs) 52 mg intrauterine device intrauterine Referrals: Raghav Lyles MD [Physician] - Juliet Mojica PA-C [Primary Care Provider] - Stand Alone Forms: Patient Portal/API
== END 2022-10-09 02:21 | disposition home or self-care (01) ==
PROVIDERS: Emergency Provider Emergency Medicine; PCP Physician Assistant
DX: K62.5 Hemorrhage of anus and rectum (principal)
CPT/HCPCS: 36415; 80048; 81003; 81015; 81025; 85025; 99283

== ENCOUNTER → 2022-10-10 14:46 | Outpatient (CLI) | payer OTHER, SELFPAY | PROVIDERS: PCP Physician Assistant; Visit Provider Physician Assistant | DX: N39.0 Urinary tract infection, site not specified (principal) | CPT/HCPCS: 87086 ==

== ENCOUNTER → 2022-10-11 09:36 | Outpatient (CLI) | payer OTHER, SELFPAY ==
[2022-10-15 10:17] LABS: Fecal Immunochemical Test Negative (Negative)
== END ==
PROVIDERS: PCP Physician Assistant; Visit Provider Physician Assistant
DX: K62.5 Hemorrhage of anus and rectum (principal); R19.8 Other specified symptoms and signs involving the digestive system and abdomen; Z12.11 Encounter for screening for malignant neoplasm of colon
CPT/HCPCS: 82274; 87045; 87177; 87899

== ENCOUNTER 2022-10-12 12:25 | Emergency (ER) | payer OTHER, SELFPAY ==
[2022-10-12] VITALS (12 sets, daily range): BP systolic 108–121; BP diastolic 62–90; PULSE 61–84; RESP 16–18; TEMP 36.6–37; O2SAT 97–100; BMI 33.7
[2022-10-12 17:41] LABS: Add Manual Diff / Slide Review NO; Basophils Absolute Auto 0 /uL (0-100); Basophils Percent Auto 0.8 % (0-2); Eosinophils Absolute Auto 300 /uL (0-450); Eosinophils Percent Auto 4.3 % (2-4); Hematocrit 37.6 % (36-46); Hemoglobin 12.8 g/dL (12.0-16.0); Lymphocytes Absolute Auto 2500 /uL (1100-4500); Mean Corpuscular HGB Conc 34.1 % (30-36); Mean Corpuscular Hemoglobin 31.8 PG (26-34); Mean Corpuscular Volume 93.3 fL (80-100); Monocytes Absolute Auto 400 /uL (0-900); Monocytes Percent Auto 5.9 % (3-14); Neutrophils Absolute Auto 3300 /uL (1500-7000); Platelet Count 241 X10^3/uL (150-400); Red Blood Cell Count 4.04 X10^6/uL (4.0-5.2); Red Cell Distribution Width 12.6 % (11.6-14.8); White Blood Cell Count 6.5 X10^3/uL (4.5-11.0)
[2022-10-12 18:12] LABS: Alanine Aminotransferase 18 IU/L (<35); Albumin 4.3 g/dL (3.5-5.0); Albumin Globulin Ratio 1.2 (1.0-2.8); Alkaline Phosphatase 58 U/L (38-126); Aspartate Aminotransferase 26 IU/L (14-36); BUN Creatinine Ratio 26.2 (6-22); Bilirubin Total 0.4 mg/dL (0.2-1.3); Blood Urea Nitrogen 17 mg/dL (7-17); Calcium 8.7 mg/dL (8.4-10.2); Carbon Dioxide 27 mmol/L (22-32); Chloride 105 mmol/L (98-107); Estimated Glomerular Filt Rate > 60 mL/min (>60); Globulin 3.6 g/dL (1.7-4.1); Glucose 88 mg/dL (70-100); HEMOLYSIS < 15 (0-50); Lipase 94 U/L (23-300); Potassium 3.8 mmol/L (3.4-5.1); Sodium 139 mmol/L (137-145); Total Protein 7.9 g/dL (6.3-8.2)
--- NOTE | 2022-10-12 18:17 | ED_ITS ---
HPI - Abdominal Pain General Chief Complaint: Abdominal Pain Stated Complaint: lower abdominal plain Time Seen by Provider: 10/12/22 18:02 Source: patient Mode of arrival: Family Vehicle History of Present Illness HPI narrative: 32F nonsmoker presents with lower abdominal discomfort and dark and tarry stool over the course of the day. She is been having pain in her lower abdomen for some time and was actually seen here relatively recently. She had been having bright red stool at the time. She has an outpatient colonoscopy scheduled for next week. She is had no fever or chills. She is not dizzy nor weak or lightheaded. She denies any chest pain or shortness of breath. She does have some low back pain and states that on occasion she feels it in her right hip and down her right leg. She denies any numbness, tingling or weakness. She is had no trouble with controlling her bowel or bladder. She denies any weakness of her lower extremity. She is had no trauma, takes no blood thinners, denies fever Related Data Home Medications Medication Instructions Recorded Confirmed levonorgestrel 21 mcg/24 hours (8 intrauterine 11/15/21 10/12/22 yrs) 52 mg intrauterine device (Mirena) Previous Rx's Medication Instructions Recorded hydrocodone 5 mg-acetaminophen 325 1 tab PO Q4-6H PRN pain #10 tabs 10/12/22 mg tablet ondansetron 4 mg disintegrating 4 mg PO TID-QID PRN nausea and 10/12/22 tablet vomiting #10 tabs pantoprazole 40 mg tablet,delayed 40 mg PO DAILY #30 tabs 10/12/22 release (Protonix) Allergies Allergy/AdvReac Type Severity Reaction Status Date / Time No Known Drug Allergies Allergy Verified 10/12/22 13:16 Review of Systems Review of Systems Narrative: GENERAL: Denies chills, fatigue, malaise, fever, sweats. HEENT: Denies sinus pain, ear pain, sore throat, difficulty swallowing, dizziness. RESPIRATORY: Denies dyspnea, cough, wheezing, hemoptysis, sputum. CARDIOVASCULAR: Denies chest pain, palpitations, orthopnea, edema, GASTROINTESTINAL: See HPI : See HPI MUSCULOSKELETAL: See HPI SKIN: Denies rash, skin lesions, or other NEUROLOGIC: Denies weakness, headache, numbness, change in speech, confusion, seizures, incoordination. PSYCHIATRIC: No concerning psychosocial issues. 12 point review of systems is negative except for those stated above Patient History Medical History Anxiety and depression Asthma (~2011) Lumbar pain Ovarian cyst (~2014) Family History Mother Thyroid cancer Grandmother Ovarian cancer Grandmother Lung cancer Smoker Social History marital status: household members: spouse lives independently: Yes occupational status: employed Smoking Status: Never smoker alcohol intake: never Smoking Status: Never smoker alcohol intake frequency: a few times a month Substance Use Type: marijuana Exam Narrative Exam Narrative: GENERAL: [32] year old patient appears stated age. Well-developed patient, in mild distress. HEAD: Atraumatic. Normocephalic. EYES: Pupils equal round and reactive. Extraocular motions intact. No scleral icterus. No injection or drainage. ENT: Nose without bleeding, purulent drainage. Throat without erythema, tonsi llar hypertrophy or exudate. Airway patent. NECK: Trachea midline. Non tender CARDIOVASCULAR: Regular rate and rhythm without murmurs, gallops, or rubs. RESPIRATORY: Clear to auscultation. Breath sounds equal bilaterally. No wheezes, rales, or rhonchi. GASTROINTESTINAL: Abdomen soft, tender in the right lower quadrant, no rebound, nondistended. EXTREMITIES: No edema or joint tenderness. BACK: dye tank tender but free of any obvious external abnormalities. Patient exam notes decreased range of motion and muscle spasm, but no CVA tenderness, or vertebral point tenderness. There are no symptoms of cauda equina such as saddle anesthesia, and decreased reflexes, decreased sensation or strength. NEURO: AOx3. SKIN: No rash or erythema of visible areas Initial Vital Signs Initial Vital Signs: Vital Signs Temperature 98.6 F 10/12/22 13:08 Pulse Rate 84 10/12/22 13:08 Respiratory Rate 18 10/12/22 13:08 Blood Pressure 121/90 10/12/22 13:08 Pulse Oximetry 98 10/12/22 13:08 Oxygen Delivery Method Room Air 10/12/22 13:08 Course Orders Ordered: ED Orders 10/12/22 17:27 Complete Blood Count AUTO DIFF Stat Comprehensive Metabolic Panel Stat Lipase Stat 03/10/23 19:10 CT abdomen pelvis w con Stat Discontinued Medications Hydrocodone Bitart/Acetaminophen (Hydrocodone/Acet 5/325 Prepack) 1 bottle MISC SEEINSTR ONE Stop: 10/12/22 20:38 Last Admin: 10/12/22 20:57 Dose: 1 bottle Documented By: DANIEL Ondansetron HCl (Ondansetron 4 Mg Odt) 4 mg PO NOW PRN PRN Reason: Nausea And Vomiting Ondansetron HCl (Ondansetron 4 Mg/2 Ml Inj) 4 mg IV NOW PRN PRN Reason: Nausea And Vomiting Ondansetron HCl (Ondansetron 4 Mg Odt Prepack) 1 bottle MISC SEEINSTR ONE Stop: 10/12/22 20:38 Last Admin: 10/12/22 20:57 Dose: 1 bottle Documented By: DANIEL Vital Signs Vital signs: Vital Signs - 8 hr 10/12/22 18:29 10/12/22 18:30 10/12/22 18:30 Temperature Pulse Rate 67 61 Respiratory Rate Blood Pressure 108/64 Pulse Oximetry 100 100 Oxygen Delivery Method 10/12/22 19:00 10/12/22 19:00 10/12/22 19:32 Temperature Pulse Rate 62 66 Respiratory Rate Blood Pressure 116/62 Pulse Oximetry 99 99 Oxygen Delivery Method 10/12/22 20:00 10/12/22 20:30 10/12/22 20:53 Temperature Pulse Rate 70 69 Respiratory Rate Blood Pressure 117/71 Pulse Oximetry 98 97 Oxygen Delivery Method 10/12/22 20:53 10/12/22 20:58 Temperature 97.8 F Pulse Rate 74 78 Respiratory Rate 16 Blood Pressure 117/69 Pulse Oximetry 98 98 Oxygen Delivery Method Room Air MDM - Abdominal Pain Lab Data 10/12/22 17:27 10/12/22 17:27 Labs: Lab Results 10/12/22 10/12/22 Range/Units 17:27 17:27 WBC 6.5 (4.5-11.0) X10^3/uL RBC 4.04 (4.0-5.2) X10^6/uL Hgb 12.8 (12.0-16.0) g/dL Hct 37.6 (36-46) % MCV 93.3 (80-100) fL MCH 31.8 (26-34) PG MCHC 34.1 (30-36) % RDW 12.6 (11.6-14.8) % Plt Count 241 (150-400) X10^3/uL Neut % (Auto) 50.0 (50-75) % Lymph % (Auto) 39.0 (25-40) % Mclennan % (Auto) 5.9 (3-14) % Eos % (Auto) 4.3 H (2-4) % Baso % (Auto) 0.8 (0-2) % Neut # (Auto) 3300 (3746-4291) /uL Lymph # (Auto) 2500 (7857-4332) /uL Mclennan # (Auto) 400 (0-900) /uL Eos # (Auto) 300 (0-450) /uL Baso # (Auto) 0 (0-100) /uL Sodium 139 (137-145) mmol/L Potassium 3.8 (3.4-5.1) mmol/L Chloride 105 (98-107) mmol/L Carbon Dioxide 27 (22-32) mmol/L BUN 17 (7-17) mg/dL Creatinine 0.65 (0.52-1.04) mg/dL Estimated GFR > 60 (>60) mL/min BUN/Creatinine Ratio 26.2 H (6-22) Glucose 88 (70-100) mg/dL Calcium 8.7 (8.4-10.2) mg/dL Total Bilirubin 0.4 (0.2-1.3) mg/dL AST 26 (14-36) IU/L ALT 18 (<35) IU/L Alkaline Phosphatase 58 (38-126) U/L Total Protein 7.9 (6.3-8.2) g/dL Albumin 4.3 (3.5-5.0) g/dL Globulin 3.6 (1.7-4.1) g/dL Albumin/Globulin Ratio 1.2 (1.0-2.8) Lipase 94 (23-300) U/L Point of care testing: Point of Care Testing Test Results Negative Urine Dip Bedside Urine Glucose Negative Bedside Urine Bilirubin + 1 Bedside Urine Ketone - Negative Urine Specific [place] 1.030 Bedside Urine Occult Blood - Negative Bedside Urine pH 5.5 Bedside Urine Protein +/- 15 Bedside Urine Urobilinogen - Negative Bedside Urine Nitrite - Negative Bedside Urine Leukocytes +/- [address] scan - abdomen/pelvis: Radiologist's Impression: Close Abdomen/Pelvis CT (Signed) Hill Calderon - 10/12/22 Launch?Image [address] [address] [address] Scan Report Signed Patient: Kalina Voss MR#: [id number] : 1990 Acct:[id number] Age/Sex: 32 / F Date of Service: 10/12/22 Loc: ED Accession Number: [id number] ?? Procedure: CT abdomen pelvis w con Ordering Provider: Duy Herndon D.O. PROCEDURE:? CT ABDOMEN PELVIS W CON ? INDICATIONS:? severe RLQ pain ? TECHNIQUE:? After the administration of intravenous contrast, axial sections acquired from the lung bases to the pubic symphysis.? Coronal and sagittal reformats were performed.? For radiation dose reduction, the following was used:? automated exposure control, adjustment of mA and/or kV according to patient size.? ? COMPARISON:? [facility], CT, CT ABDOMEN PELVIS W CON, 10/27/2018, 15:50. ? FINDINGS:? Image quality:? Excellent.? ? Lung bases:? Unremarkable. Heart:? No significant findings. ? ABDOMEN: Liver:? Unremarkable.? ? Gallbladder:? Unremarkable.? ? Biliary ducts:? Unremarkable.? ? Pancreas:? Unremarkable.? ? Spleen:? Unremarkable.? ? Adrenal Glands:? Unremarkable.? ? Kidneys and Ureters:? Unremarkable.? ? ? Stomach and Bowel:? Stomach, small bowel loops, and colon are unremarkable.? Mild diverticulosis without evidence of diverticulitis.? Normal appendix. Peritoneum:? No abnormal intraperitoneal fluid.? No free air.? ? Ventral Wall: ? No hernias.? Abdominal Nodes:? No retroperitoneal or mesenteric adenopathy by size criteria.? Vessels:? Aorta and inferior vena cava are normal in size.? ? PELVIS: Pelvic Organs:? Unremarkable.? IUD.? Bladder:? Unremarkable.? ? Pelvic Nodes: No enlarged lymph nodes.? Miscellaneous: No hernias are seen. ? ? ? Bones:? Mild lumbar degenerative change.? No compression fractures.? No lytic or blastic bony lesions. ? ? IMPRESSION:? Normal appendix.? No findings which explain right lower quadrant pain.? No evidence acute abdominal process. ? ? Dictated by: Hill Calderon M.D. on 10/12/2022 at 19:59 ? ? Approved by: Hill Calderon M.D. on 10/12/2022 at 20:01 ? MDM Narrative Medical decision making narrative: CC: 32 old female with right lower quadrant pain and dark stool Complicating co-morbidities: None known Data collected from: Patient Medical records reviewed: Prior notes reviewed in our EMR Differential considered, but not limited to: Diverticulitis, colitis, kidney stone, radicular symptoms from low back involvement versus other Exam documented above, pertinent findings include: Right lower quadrant pain without rebound. Bilateral lower extremity strength 5/5, reflexes equal bilaterally, 2+, sensation intact, no saddle anesthesia Lab Test results independently reviewed as above. Pertinent findings: No leukocytosis or left shift, no evidence of anemia, electrolytes and renal funct ion within normal, LFTs normal Independently reviewed EKG as above Imaging studies independently reviewed: CT without significant findings Treatments: Zofran, hydrocodone Re-evaluations: improved pain, nausea Discussion: Patient with 2nd visit for lower abdominal discomfort and GI bleed. She takes no blood thinners and is not dizzy nor weak or lightheaded. She is not actively bleeding and labs are reassuring. Imaging has no significant findings. Pain is well controlled and patient is able to tolerate orals. Patient has a scheduled colonoscopy next week. She is appropriate for disch arge, encouraged to employed clear liquid diet for the next few days take medications as directed and return for worsening symptoms Disposition: see below, along with detailed discharge instructions that have been reviewed with patient as well as indications for ED re-evaluation and additional outpatient follow up Discharge Plan Departure Patient Disposition: Home Clinical Impression: Abdominal pain Instructions: DI for Abdominal Pain-Adult Activity Restrictions/Additional Instructions: *You have been diagnosed with [abdominal pain] * As we discussed your history and physical exam as well as labs and imaging are very reassuring. There is no evidence of any severe diagnoses that would require a specific or immediate intervention. *What to do: *Please continue to take your regular medications as directed. [x ] New medication prescriptions sent to your pharmacy: [ [facility]] *Please follow up with your primary care provider in 2-3 days, call for an appointment. Let them know you were seen in the Emergency Department and that we ask that you be seen in follow up. We will electronically transmit a record of today's note if your PCP is in our system *Please consider a clear liquid diet for the next 24-48 hours and then slowly advance to regular as tolerated. Also, try to avoid alcohol, nicotine, caffeine, spicy, acidic or fatty foods as this may worsen your symptoms *If you do not have a primary care provider please contact the [facility] Resource line at [phone]. They will ask some questions about your medical history and help get you set up with a doctor in the community. *Return to Emergency Department if you should have any new, worsening or concerning symptoms, such as [fever greater than 101 F, shaking chills, worsening pain, persistent vomiting or other bothersome symptoms] Prescriptions: New hydrocodone-acetaminophen 5-325 mg tablet 1 tab PO Q4-6H PRN (Reason: pain) Qty: 10 0RF pantoprazole [Protonix] 40 mg tablet,delayed release (DR/EC) 40 mg PO DAILY Qty: 30 0RF ondansetron 4 mg tablet,disintegrating 4 mg PO TID-QID PRN (Reason: nausea and vomiting) Qty: 10 0RF No Action Mirena 20 mcg/24 hours (7 yrs) 52 mg intrauterine device intrauterine Referrals: Juliet Mojica PA-C [Primary Care Provider] - Stand Alone Forms: Patient Portal/API
--- NOTE | 2022-10-12 19:10 | DI.CT.S_ITS ---
PROCEDURE: CT ABDOMEN PELVIS W CON INDICATIONS: severe RLQ pain TECHNIQUE: After the administration of intravenous contrast, axial sections acquired from the lung bases to the pubic symphysis. Coronal and sagittal reformats were performed. For radiation dose reduction, the following was used: automated exposure control, adjustment of mA and/or kV according to patient size. COMPARISON: [facility], CT, CT ABDOMEN PELVIS W CON, 10/27/2018, 15:50. FINDINGS: Image quality: Excellent. Lung bases: Unremarkable. Heart: No significant findings. ABDOMEN: Liver: Unremarkable. Gallbladder: Unremarkable. Biliary ducts: Unremarkable. Pancreas: Unremarkable. Spleen: Unremarkable. Adrenal Glands: Unremarkable. Kidneys and Ureters: Unremarkable. Stomach and Bowel: Stomach, small bowel loops, and colon are unremarkable. Mild diverticulosis without evidence of diverticulitis. Normal appendix. Peritoneum: No abnormal intraperitoneal fluid. No free air. Ventral Wall: No hernias. Abdominal Nodes: No retroperitoneal or mesenteric adenopathy by size criteria. Vessels: Aorta and inferior vena cava are normal in size. PELVIS: Pelvic Organs: Unremarkable. IUD. Bladder: Unremarkable. Pelvic Nodes: No enlarged lymph nodes. Miscellaneous: No hernias are seen. Bones: Mild lumbar degenerative change. No compression fractures. No lytic or blastic bony lesions. IMPRESSION: Normal appendix. No findings which explain right lower quadrant pain. No evidence acute abdominal process. Dictated by: Hill Calderon M.D. on 10/12/2022 at 19:59 Approved by: Hill Calderon M.D. on 10/12/2022 at 20:01
[2022-10-12] MEDS: HYDROCODONE/ACET 5/325 PREPACK 1 BOTTLE MISC (20:57)
[2022-10-12] MEDS: ONDANSETRON 4 MG ODT PREPACK 1 BOTTLE MISC (20:57)
== END 2022-10-12 21:00 | disposition home or self-care (01) ==
PROVIDERS: Emergency Medicine; Emergency Provider Emergency Medicine; PCP Physician Assistant
DX: R10.31 Right lower quadrant pain (principal); K92.1 Melena
CPT/HCPCS: 36415; 74177; 80053; 81003; 81025; 83690; 85025; 99283; 99284; Q9967

== ENCOUNTER 2022-10-19 10:15 | Day surgery (SDC) | payer OTHER, SELFPAY ==
[2022-10-19 10:41] VITALS: BP 115/82; PULSE 93; RESP 12; TEMP 37.1; O2SAT 98; BMI 33.3
--- NOTE | 2022-10-19 10:51 | SUR.PREOP ---
patient with tic disorder, makes grunting, chirping, clicking noises when stressed. Had episode with IV start. Reported has an IUD and negative test on 10/[address]. Refuses test. Anesthesia aware of Tic disorder.
--- NOTE | 2022-10-19 10:52 | PM.HP.1 ---
History of Present Illness History of Present Illness Date Patient Seen: 10/19/22 Time Patient Seen: 10:52 Chief complaint: EGD/Colonoscopy Narrative: abdominal pain and dark stools Patient History Medical History Anxiety and depression Asthma (~2011) Lumbar pain Ovarian cyst (~2014) Family & Social History Family History Mother Thyroid cancer Grandmother Ovarian cancer Grandmother Lung cancer Smoker Social History: household members spouse lives independently Yes Tobacco & Substance use: Smoking Status Never smoker alcohol intake never alcohol intake frequency a few times a month Substance Use Type marijuana Meds Home Medications and Allergies Home Medications Medication Instructions Recorded Confirmed Type levonorgestrel 21 mcg/24 hours (8 intrauterine 11/15/21 10/12/22 History yrs) 52 mg intrauterine device (Mirena) Allergies Allergy/AdvReac Type Severity Reaction Status Date / Time No Known Drug Allergies Allergy Verified 10/12/22 13:16 Review of Systems Review of Systems Narrative: no diarrhea or constipation. ROS: Yes All systems reviewed with the patient and are negative except as otherwise documented Exam Vital Signs (past 8 hours): - 10/19/22 10:41 Temperature 98.8 F Pulse Rate 93 H Respiratory Rate 12 Blood Pressure 115/82 Pulse Oximetry 98 Oxygen Delivery Method Room Air Oxygen Delivery Method Room Air Const General: cooperative and healthy appearing Nutritional Appearance: well nourished [facility] Head: normocephalic and atraumatic Ears: hearing grossly normal bilaterally Eyes General: appearance normal, both eyes and all related structures Sclera: sclerae normal Neck Neck: trachea midline Resp Effort & Inspection: normal respiratory effort and able to speak in complete sentences Cardio Rate: tachycardic Rhythm: regular rhythm GI Palpation: soft Other: 10/12 CT abd and pelvic reviewed, no intra abdominal pathology to explain symptoms Skin General: no rashes or lesions noted and elasticity normal Neuro General: patient alert, patient awake and patient oriented x3 Cognition: normal cognition Speech: speech normal Motor: no movement abnormalities noted (facial tic, a startled response easily elicited ) Extrem General: normal to inspection Psych Mental Status: mental status grossly normal Attitude: cooperative Judgment: judgment good Assessment & Plan Assessment & Plan narrative: Abdominal pain and dark stool. Plan: EGD and colonoscopy using MAC Time Spent With Patient Time with patient: less than 30 minutes Critical Care time: I spent a total of [] minutes of critical care time on this patient's care today; this time is exclusive of procedural time.
[2022-10-19] MEDS: LACTATED RINGERS 1,000 ML 42 ML IV (10:53)
--- NOTE | 2022-10-19 10:57 | PM.OP.EC ---
Operative Date/Time/Diagnoses Date of procedure: 10/19/22 Time of procedure: 10:57 Pre-op diagnosis: abdominal pain and dark stools Post-op diagnosis: same Procedure & Clinicians Study performed: EGD and colonoscopy Same procedure as scheduled: Yes Indications: Abdominal pain and dark stools Surgeon: Zelda Smart Procedure Notes SCOAP/Timeout: Done Procedure in detail: Preop diagnosis: Abdominal pain and dark stools Postop diagnosis: Same Operative procedure: EGD and colonoscopy under MAC Findings: On the EGD there was gastritis, no ulcers or erosions, normal esophagus On colonoscopy there were no polyps and no significant diverticulosis. A normal appearing mucosa Procedure: Patient placed in a supine position initially anesthetic was provided. Scope was inserted into the esophagus advanced into the stomach and with insufflation identified the pylorus intubated into the duodenum. Gastritis was noted in the pre-pyloric position. No polyps, no ulcerations, no erosions. Duodenum was within normal limits. Retroflex showed no hiatal hernia. Esophagus was normal After removal of the EGD we turned the patient onto her side and rectal exam was performed. Rectal exam was normal tone no masses. Colonoscope inserted into the rectum and advanced to ileocecal valve with minimal difficulty. Insufflation extraction of the scope including retroflex in the rectum had normal findings. Impression: Abdominal pain and dark stools could be from a resolving gastritis. Plan: Protonix 1 daily for 4 weeks. Repeat colonoscopy age 50 for colon cancer screening. Findings: gastritis Specimen(s): none sent Complications: none Impression: Gastritis. Normal colon Post-procedure Recommendations: Colonscopy in 10 years and Prescription for (Protonix) Follow up: as needed Disposition: PACU
[2022-10-19 11:23] VITALS: BP 115/78; PULSE 85; RESP 18; TEMP 36.6; O2SAT 94
[2022-10-19 11:29] VITALS: BP 120/86; PULSE 75; RESP 18; O2SAT 98
[2022-10-19 11:33] VITALS: BP 115/89; PULSE 84; RESP 16; O2SAT 98
[2022-10-19 11:38] VITALS: BP 122/98; PULSE 85; RESP 20; O2SAT 99
== END 2022-10-19 12:06 | disposition home or self-care (01) ==
PROVIDERS: PCP Physician Assistant; Referring Provider Surgery; Visit Provider Surgery
PROC: 0DJ08ZZ Inspection of Upper Intestinal Tract, Via Natural or Artificial Opening Endoscopic (ICD-10-PCS; CPT 43235; principal; 2022-10-19 13:00)
PROC: 0DJD8ZZ Inspection of Lower Intestinal Tract, Via Natural or Artificial Opening Endoscopic (ICD-10-PCS; CPT 45378; 2022-10-19 13:00)
DX: R10.9 Unspecified abdominal pain (principal); K29.70 Gastritis, unspecified, without bleeding
CPT/HCPCS: 45378; 43235; J2704